=== PATIENT | male | born 1975 | race Caucasian/White ===

== ENCOUNTER 2020-06-20 08:08 | Inpatient (IN) | payer OTHER ==
[~2020-06-20] VITALS: Ht 182.9 cm; Wt 126.9 kg
[~2020-06-20 08:08] MED LIST: CIPR500 PO; FAMO10 PO; IBUPROFEN PO; METPRE4DP PO; OXYACE5T PO; PROM25 PO; RXOXYACE PO; RXPROM25 PO
[2020-06-20 09:09] LABS: Base Excess Venous 0.9 mmol/L; Bicarbonate Venous 23.7 mmol/L (24.0-30.0); PCO2 Venous 47.7 mmHg (38-42); PO2 Venous 42.1 mmHg (38-42); pH Blood Venous 7.35 (7.34-7.37)
[2020-06-20 09:22] LABS: Hemoglobin 17.9 g/dL (13.5-17.5); Mean Corpuscular HGB 27.6 pg (26.0-34.0); Mean Corpuscular HGB Conc 31.7 g/dL (31.5-36.5); Mean Corpuscular Volume 87 fL (80-100); NRBC ABSOLUTE 0.03 K/mm3 (0.00-0.02); NRBC Auto 0.2 /100 WBC (0.0-0.2); Platelet Count 323 K/mm3 (150-400); RDW Standard Deviation 42.6 fL (35.1-46.3); Red Blood Cell Count 6.49 M/mm3 (4.30-5.90); White Blood Cell Count 16.96 K/mm3 (4.00-11.30)
[2020-06-20 09:29] LABS: Alanine Aminotransfer (ALT/SGP 56 U/L (12-78); Albumin, Blood 3.3 g/dL (3.4-5.0); Albumin/Globulin Ratio 0.6 (0.8-1.8); Alk Phos 119 U/L (50-136); Anion Gap 8 mmol/L (6-16); Aspartate Aminotrans (AST/SGOT 75 U/L (12-37); Bilirubin, Total 1.5 mg/dL (0.1-1.0); Blood Urea Nitrogen 23 mg/dL (8-24); Bun/Creatinine Ratio 24.9 (12.0-20.0); CO2, Blood 26 mmol/L (21-32); Calcium, Blood 8.7 mg/dL (8.5-10.1); Chloride, Blood 100 mmol/L (98-108); Creatinine, Blood 0.92 mg/dL (0.60-1.20); Globulin, Blood 5.2 g/dL (2.2-4.0); Glomerular Filtration Rate >60 (60-); Glucose, Blood 125 mg/dL (70-99); Potassium, Blood 4.6 mmol/L (3.5-5.5); Sodium, Blood 134 mmol/L (136-145); Total Protein, Blood 8.5 g/dL (6.4-8.2); Troponin I <0.015 ng/mL (0.000-0.040)
[2020-06-20 09:38] LABS: Hematocrit 56.5 % (37.0-53.0)
[2020-06-20 09:45] LABS: BAND PERCENT MAN 1 % (0-8); BASOPHILS PERCENT MAN 0 % (0-2); EOSINOPHILS PERCENT MAN 0 % (0-6); LYMPHOCYTES ABSOLUTE MAN 2.71 K/mm3 (0.84-5.20); LYMPHOCYTES PERCENT MAN 16 % (21-46); MONOCYTES PERCENT MAN 3 % (4-13); MYELOCYTE ABSOLUTE MAN 0.16 K/mm3 (0.00-0.00); MYELOCYTE PERCENT MAN 1 % (0-0); NEUTROPHILS ABSOLUTE MAN 13.56 K/mm3 (1.96-9.15); SEG NEUTROPHILS PERCENT MAN 79 % (41-73); TOTAL CELLS COUNTED 100
[2020-06-20 10:35] LABS: D-Dimer, Quantitative 4.26 mg/L FEU (0.00-0.52); International Normalized Ratio 1.02; Prothrombin Time Results 10.9 Sec (9.7-11.5)
--- NOTE | 2020-06-20 14:47 | NUR ---
1257: PT ARRIVES TO ICU 5 FROM ED ON AIRVO 55 LPM, 55%, SATS 90% PT ASSISTED TO ICU BED USING SLIDER SHEET. PT TACHYPNEIC AND DYSPNEIC WITH EXERTION, LUNG SOUNDS DIM T/O. PT STATES "SEVERAL FAMILY MEMBERS HAVE COVID" INCLUDING 1 SISTER THAT IS CURRENTLY HOSPITALIZED AT [facility]. 1330: FIO2 INCREASED TO 75% TO MAINTAIN SATS>88 1430" FIO2 INCREASED TO 80%, SATS CURRENTLY 92%. RT AT BEDSIDE ENCOURAGING PT TO SELF PRONE TOLERATED. PT STATES UNDERSTANDING AND STATES HE PREFERS TO BE ON HIS STOMACH. PT'S VSS AT THIS TIME. PT DENIES NEEDS. SEE FULL ADMISSION ASSESSMENT.
[2020-06-20 17:16] LABS: Source, Urine Clean Catch
[2020-06-20 17:19] LABS: Appearance, Urine Clear (Clear); Bilirubin, Urine Neg (Neg); Blood, Urine Neg (Neg); Color, Urine Amber (P-Yellow); Glucose Qualitative, Urine Neg (Neg); Ketones, Urine 1+ (Neg); Leukocyte Esterase, Urine 1+ (Neg); Nitrite, Urine Neg (Neg); Protein, Urine 2+ (Neg); Specific Gravity, Urine 1.015 (1.003-1.022); Urobilinogen, Urine 2+ (Normal); pH, Urine 6.5 (5.0-8.0)
[2020-06-20 17:44] LABS: Mucus Light (0-Heavy)
[2020-06-20 17:45] LABS: Bacteria Few /hpf; Red Blood Cells, Urine 0-2 /hpf (0-2); Squamous Epithelial Cells Not Seen /hpf (Few)
--- NOTE | 2020-06-20 18:09 | NUR ---
SHIFT SUMMARY NO ACUTE CHANGES SINCE ADMISSION TO ICU. PT REMAINS ALERT AND ORIENTED, COOPERATIVE WITH CARE AND ABLE TO INDEPENDENTLY REPOSITION IN BED. PT DYSPNEIC WITH EFFORT, SATS DROP TO LOW 80% WHEN AIRVO REMOVED FOR EVEN SHORT PERIODS OF TIME. PT HAS OCCASIONALLY DRY COUGH, LUNG SOUNDS REMAIN DIM T/O. AIRVO SETTINGS 55 LPM, 80% FIO2-SATS 92-95%. NS INFUSING AT 100 ML/HR X1 LITER. PT HAD 500 ML OF MIKEY URINARY OUTPUT. VSS AT THIS TIME. WILL REPORT TO ONCOMING SHIFT.
[2020-06-21 03:41] LABS: BASOPHILS ABSOLUTE AUTO 0.08 K/mm3 (0.00-0.23); BASOPHILS PERCENT AUTO 1 % (0-2); EOSINOPHILS ABSOLUTE AUTO 0.03 K/mm3 (0.00-0.68); EOSINOPHILS PERCENT AUTO 0 % (0-6); Hematocrit 52.4 % (37.0-53.0); Hemoglobin 17.2 g/dL (13.5-17.5); IMMATURE GRAN ABSOLUTE AUTO 0.59 K/mm3 (0.00-0.10); IMMATURE GRAN PERCENT AUTO 5 % (0-1); LYMPHOCYTES ABSOLUTE AUTO 1.57 K/mm3 (0.84-5.20); LYMPHOCYTES PERCENT AUTO 13 % (21-46); MONOCYTES ABSOLUTE AUTO 0.25 K/mm3 (0.16-1.47); MONOCYTES PERCENT AUTO 2 % (4-13); Mean Corpuscular HGB 27.8 pg (26.0-34.0); Mean Corpuscular HGB Conc 32.8 g/dL (31.5-36.5); Mean Corpuscular Volume 85 fL (80-100); NEUTROPHILS ABSOLUTE AUTO 10.08 K/mm3 (1.96-9.15); NEUTROPHILS PERCENT AUTO 80 % (41-73); RDW Coefficient Variation 13.5 % (11.7-14.2); RDW Standard Deviation 40.6 fL (35.1-46.3); Red Blood Cell Count 6.19 M/mm3 (4.30-5.90)
[2020-06-21 03:42] LABS: Platelet Count 226 K/mm3 (150-400)
[2020-06-21 03:58] LABS: BAND PERCENT MAN 5 % (0-8); BASOPHILS PERCENT MAN 0 % (0-2); EOSINOPHILS PERCENT MAN 0 % (0-6); LYMPHOCYTES ABSOLUTE MAN 1.51 K/mm3 (0.84-5.20); LYMPHOCYTES PERCENT MAN 12 % (21-46); METAMYELOCYTE ABSOLUTE MAN 0.12 K/mm3 (0.00-0.00); METAMYELOCYTE PERCENT MAN 1 % (0-0); MONOCYTES ABSOLUTE MAN 0.37 K/mm3 (0.16-1.47); MONOCYTES PERCENT MAN 3 % (4-13); MYELOCYTE ABSOLUTE MAN 0.12 K/mm3 (0.00-0.00); MYELOCYTE PERCENT MAN 1 % (0-0); NEUTROPHILS ABSOLUTE MAN 10.45 K/mm3 (1.96-9.15); SEG NEUTROPHILS PERCENT MAN 78 % (41-73); TOTAL CELLS COUNTED 100
[2020-06-21 05:03] LABS: Alanine Aminotransfer (ALT/SGP 45 U/L (12-78); Albumin, Blood 2.6 g/dL (3.4-5.0); Albumin/Globulin Ratio 0.6 (0.8-1.8); Alk Phos 98 U/L (50-136); Anion Gap 5 mmol/L (6-16); Aspartate Aminotrans (AST/SGOT 49 U/L (12-37); Bilirubin, Total 1.4 mg/dL (0.1-1.0); Blood Urea Nitrogen 21 mg/dL (8-24); CO2, Blood 27 mmol/L (21-32); Calcium, Blood 8.1 mg/dL (8.5-10.1); Chloride, Blood 102 mmol/L (98-108); Creatinine, Blood 0.88 mg/dL (0.60-1.20); Globulin, Blood 4.4 g/dL (2.2-4.0); Glomerular Filtration Rate >60 (60-); Glucose, Blood 118 mg/dL (70-99); Magnesium, Blood 2.8 mg/dL (1.6-2.4); Potassium, Blood 4.3 mmol/L (3.5-5.5); Sodium, Blood 134 mmol/L (136-145)
--- NOTE | 2020-06-21 06:26 | NUR ---
SHIFT SUMMARY PATIENT PLEASENT AND COOPERATIVE LAST NIGHT. PATIENT APPEARED TO SLEEP WELL THROUGHOUT MOST OF THE NIGHT. PATIENT ABLE TO REPOSITION SELF WELL WITH SOME ASSISTANCE FOR LINE MANAGMENT, PATIENT CALLS APPROPRIATELY FOR HELP WHEN NEEDED. PATIENT SLEF PRONED SEVERAL TIMES LAST NIGHT. PATIENT O2 SATURATION DROPS INTO THE 80'S WITH ACTIVITY, EVEN WITH REPOSITIONING IN BED. HOWEVER, PATIENT ABLE TO RECOVER IN LESS THAN ONE MINUTE EACH TIME WHILE ON AIRVO. PATIENT REMAINED ON AIRVO THROUGHOUT THE NIGHT. WILL CONTINUE WITH CURRENT PLAN OF CARE.
--- NOTE | 2020-06-21 08:01 | NUR ---
ASSUMED CARE RECEIVED REPORT FROM DIANDRA NAQVI. PT IS LYING DOWN IN BED, SEMI-PRONED, ON LEFT SIDE OF BODY. HE IS CURRENTLY AWAKE BUT HAS BEEN WANTING TO SLEEP A LITTLE MORE. HE IS ALERT AND ORIENTED X SELF, SITUATION, SURROUNDINGS, AND DATE. HE C/O HEADACHE, AND BEING SHORT OF BREATH WHEN HE USES THE URINAL BUT NOT WHEN HES AT REST. PT DENIES ANY CHEST PAIN THIS MORNING. HE HAS A NONPRODUCTIVE COUGH. HE IS TACHYPNEIC, RR IN THE 20s. SPO2 IS 92-94%. SINUS TO SINUS TACH. 90s, 100-110 WITH ACTIVITY. BP STABLE TO ELEVATED. BED LOW AND LOCKED. CALL LIGHT WITHIN REACH.
--- NOTE | 2020-06-21 14:21 | NUR ---
Pt able to get out of bed by his self. O2 dropped into the 80s with movement. but came back up while on the BSC. Pt refused my help with cleaning once done on the BSC. Pt agreed to try sitting in the chair before getting back into bed. RN requested to try the chair. Pt stood and I switched out the BSC for a chair and his 02 dropped back into the 80s. Watching him for a few mins his 02 stayed between 82 and 85. Pt c\o chest pain and shortness of breath. I had pt lay back down and reported to the RN.
--- NOTE | 2020-06-21 17:27 | NUR ---
Per admit trigger, I met with Foreign to offer chromosomal disorders counselor, prayer, encouragement. He denied needs and was politely dismissive. I will remain available.
--- NOTE | 2020-06-21 18:21 | NUR ---
SHIFT SUMMARY NO ACUTE CHANGES T/O SHIFT. PT IS ON AIRVO 60L, 75% FIO2 FOR MAJORITY OF THE DAY BUT WITH DINNER/GETTING UP TO THE CHAIR - HE WAS TURNED UP TO 80-85% FOR SOME ADDITIONAL SUPPORT TO MAINTAIN HIS SPO2 > 88%. AT REST HE HAS BEEN SATing 92-94% PRIMARILY. DESATs WITH ANY ACTIVITY (UP TO TOILET, UP TO CHAIR, REPOSITIONING, AND REPOSITIONING TO USE URINAL) - USUALLY JUST LOW 82%, BUT HE RECOVERS WITHIN A FEW MINUTES. HE HAS A NONPRODUCTIVE COUGH, THAT GIVES HIM A SLIGHT DISCOMFORT, BUT HAS IMPROVED SINCE YESTERDAY, DENYING THE PLEURITIC PAIN HE WAS HAVING YESTERDAY (WAS C/O IT BEING WORSE ON INSPIRATION, AND WHEN COUGHING ORIGINALLY). HE IS QUITE DIMINISHED T/O. HE HAS BEEN PRONING ALL DAY, HE HAS BEEN OUT OF BED TO THE TOILET, AND THEN SITTING IN THE CHAIR FOR 15 MINUTES AFTER THAT, BUT DECIDED TO GO BACK TO BED, AND THEN HE HAD A LATE LUNCH AND SAT IN THE CHAIR WHILE HE ATE - FOR AT LEAST AN HOUR, TO HOUR AND A HALF. HE TOLERATED IT WELL ONCE HE RECOVERED FROM THE TRANSFER, AND THE SMALL INCREASE IN THE FIO2. HE IS IN SINUS TO SINUS TACH, DEPENDING ON HIS EXERTION/ACTIVITY LEVEL. 80-90s, 100-120 WITH EXERTION. MAP > 65. RR NORMAL AT REST, AND 25-35 WITH EXERTION. AFEBRILE. ONLY C/O A MILD HEADACHE THAT HAS RESOLVED, AND A DECREASE APPETITE, SLIGHT NAUSEA, AND MAYBE SOME DISCOMFORT R/T TO HIS GERD. I GAVE HIM A DOSE OF ZOFRAN WITH LUNCH, AND DISCUSSED THE POSSIBILITY OF GETTING TUMS IF HE WANTED THEM. AFTER LUNCH HE ACTUALLY HAD [place] INTAKE AND STATED THAT HE ACTUALLY FELT MUCH BETTER. WHEN HE GOT BACK IN BED, IT WAS PUT IN A SLIGHT REVERSE TRENDELENBURG TO HELP WITH THE GERD. HE HAD A BM TODAY, LARGE SOFT AND VARGAS WHICH IS NORMAL FOR HIM FOLLOWING HIS GALL BLADDER REMOVAL YEARS AGO. ASIDE LUNCH HIS INTAKE HASN'T BEEN ADEQUATE THE LAST FEW DAYS PER THE PT. HE DID NOT EAT MUCH BREAKFAST BUT HE HAD AN ENSURE COMPLETE, ALONG WITH A SECOND ONE FOR LUNCH. HE IS CURRENTLY SLEEPING IN THE PRONE POSITION, AND REQUESTED A HOLD ON HIS DINNER FOR THE TIME BEING. THE GOAL IS FOR HIM TO BE IN THE CHAIR WHEN HE EATS, AND HE IS WANTING SOME MORE REST. THE SENIOR QUALITY ASSURANCE ANALYST, GONZÁLEZ, HAS SEEN THE PT TODAY. DR. LALA HAD CAME BY EARLY IN THE DAY. LOVENOX WAS SWITCHED TO 1MG/KG Q12H FROM 40MG DAILY TODAY. TYLENOL GIVEN FOR HEADACHE, WITH GOOD EFFECT. PT IS MOSTLY INDEPENDENT, JUST SOME ASSISTANCE WITH MANAGING THE CHORDS WHILE TRANSFERRING. HE USES URINAL FINE, DARKER MIKEY URINE. BED LOW AND LOCKED. CALL LIGHT WITHIN REACH.
--- NOTE | 2020-06-21 19:50 | NUR ---
ASSUMPTION OF CARE RECEIVED REPORT FROM MARIAELENA JIM, ASSUMED CARE OF PATIENT. PATIENT ON STOMACH IN PRONING POSITION, EYES CLOSED, EASILY AWAKENS. DENIED DISCOMFORTS, NO PHYSICAL SIGNS OF DISTRESS. AIRVO WITH SETTINGS 60L 85% FIO2 WITH SATS ABOVE 90%. VITALS STABLE. WILL REVIEW ORDERS AND TREAT PRESCRIBED.
--- NOTE | 2020-06-22 | NUR ---
REASSESSMENT NO ACUTE CHANGES FROM INITIAL ASSESSMENT. PATIENT SELF PRONING WITH NO S/S OF DISTRESS. VITALS STABLE. DECREASED FIO2 TO 90% FROM 95%. SATS REMAINED ABOVE 95%. WILL CONTINUE TO MONITOR. CALL LIGHT WITHIN REACH.
--- NOTE | 2020-06-22 03:12 | NUR ---
BIPAP PATIENT'S SATS DECREASING TO LOW 80'S AND SUSTAINING. 60L, 95% FIO2 VIA AIRVO IN PLACE. UNABLE TO RECOVER SATS ABOVE 88% NOTIFIED FABIENNE HERRERA AND DR. GARAY, RECEIVED ORDERS FOR BIPAP AND PLACED WITH SETTINGS CPAP 10, FIO2 75%. PATIENT TOLERATING WELL AT THIS TIME. SATS NOW ABOVE 95%. WILL CONTINUE TO MONITOR.
--- NOTE | 2020-06-22 04:00 | NUR ---
REASSESSMENT NO ACUTE CHANGES FROM PREVIOUS ASSESSMENT. TOLERATING BIPAP WITH CPAP SETTINGS OF 10. SATS REMAIN ABOVE 95%. VITALS STABLE. CALL LIGHT IN REACH.
[2020-06-22 04:30] LABS: BASOPHILS PERCENT AUTO 1 % (0-2); EOSINOPHILS ABSOLUTE AUTO 0.07 K/mm3 (0.00-0.68); EOSINOPHILS PERCENT AUTO 1 % (0-6); Hemoglobin 15.5 g/dL (13.5-17.5); IMMATURE GRAN ABSOLUTE AUTO 0.66 K/mm3 (0.00-0.10); IMMATURE GRAN PERCENT AUTO 6 % (0-1); LYMPHOCYTES ABSOLUTE AUTO 1.58 K/mm3 (0.84-5.20); LYMPHOCYTES PERCENT AUTO 14 % (21-46); MONOCYTES ABSOLUTE AUTO 0.17 K/mm3 (0.16-1.47); MONOCYTES PERCENT AUTO 2 % (4-13); Mean Corpuscular HGB 27.3 pg (26.0-34.0); Mean Corpuscular HGB Conc 32.3 g/dL (31.5-36.5); Mean Corpuscular Volume 85 fL (80-100); Mean Platelet Volume 9.9 fL (9.1-12.4); NEUTROPHILS ABSOLUTE AUTO 9.08 K/mm3 (1.96-9.15); NEUTROPHILS PERCENT AUTO 78 % (41-73); Platelet Count 274 K/mm3 (150-400); RDW Coefficient Variation 13.2 % (11.7-14.2); RDW Standard Deviation 40.6 fL (35.1-46.3); Red Blood Cell Count 5.67 M/mm3 (4.30-5.90); White Blood Cell Count 11.66 K/mm3 (4.00-11.30)
[2020-06-22 04:50] LABS: Anion Gap 6 mmol/L (6-16); Blood Urea Nitrogen 26 mg/dL (8-24); Bun/Creatinine Ratio 33.5 (12.0-20.0); CO2, Blood 27 mmol/L (21-32); Calcium, Blood 8.4 mg/dL (8.5-10.1); Chloride, Blood 103 mmol/L (98-108); Creatinine, Blood 0.78 mg/dL (0.60-1.20); Glomerular Filtration Rate >60 (60-); Glucose, Blood 124 mg/dL (70-99); Potassium, Blood 4.7 mmol/L (3.5-5.5); Sodium, Blood 136 mmol/L (136-145)
[2020-06-22 04:51] LABS: BAND PERCENT MAN 1 % (0-8); BASOPHILS PERCENT MAN 0 % (0-2); EOSINOPHILS PERCENT MAN 0 % (0-6); LYMPHOCYTES ABSOLUTE MAN 1.04 K/mm3 (0.84-5.20); LYMPHOCYTES PERCENT MAN 9 % (21-46); METAMYELOCYTE ABSOLUTE MAN 0.11 K/mm3 (0.00-0.00); METAMYELOCYTE PERCENT MAN 1 % (0-0); MONOCYTES ABSOLUTE MAN 0.11 K/mm3 (0.16-1.47); MONOCYTES PERCENT MAN 1 % (4-13); NEUTROPHILS ABSOLUTE MAN 10.37 K/mm3 (1.96-9.15); SEG NEUTROPHILS PERCENT MAN 88 % (41-73); TOTAL CELLS COUNTED 100
--- NOTE | 2020-06-22 06:56 | NUR ---
SHIFT SUMMARY PATIENT PROGRESSED TO BIPAP FROM AIRVO, SLOW TO RECOVER O2 SATS WITH ANY ACTIVITY. SETTINGS ARE CPAP 12 FIO2 75%. PATIENT PRONED MAJORITY OF NIGHT AND TOLERATED WELL. PRODUCTIVE COUGH THROUGH NIGHT, USING FLUTTER VALVE. LUNGS DIMINISHED. VITALS STABLE. CONTINENT OF URINE. WILL CONTINUE TO MONITOR AND REPORT TO ONCOMING RN.
--- NOTE | 2020-06-22 10:20 | NUR ---
PT RESTING IN BED ON CPAP. FIO2 TITRATED UP TO 80% FROM 75%. PT WAS PRONED THIS AM AND SPO2 IS BETTER WITH PRONE POSITION, BUT PT WANTED TO TAKE A BREAK. TOLERATES CPAP WELL. HAS HARSH HACKING COUGH WITH SCANT SPUTUM THAT PT SWALLOWS MOST OF THE TIME. WHILE GIVING MEDS AND AT BREAKFAST, PUT PT ON AIRVO 60L FIO2 95%. PT WILL DESAT TO 85% BUT WILL RECOVER WITH REST AND THEN BACK TO CPAP. WAS ABLE TO DRINK SOME ENSURE. CALL LIGHT AND URINAL IN REACH.
--- NOTE | 2020-06-22 18:13 | NUR ---
SUMMARY PT RESTING IN BED ON CPAP. HAS WORN CPAP ALL DAY. ABLE TO PRONE SELF AND OXYGENATES BETTER WHEN PRONED. FIO2 TITRATED DOWN TO 60%. GETS SOB WITH ANY EXERTION AND SPO2 DROPS TO 84%. JUST USING URINAL IN BED MAKES PT SOB AND SPO2 DROPS. NO OTHER CHANGES THIS SHIFT.
--- NOTE | 2020-06-22 19:13 | NUR ---
ASSUMPTION OF CARE RECEIVED REPORT FROM KRYSTIAN JIM. ASSUMED CARE OF PATIENT. PATIENT IN PRONE POSITION, BIPAP WITH CPAP SETTINGS 12, FIO2 60%. VITALS STABLE. NO S/S OF DISTRESS. WILL REVIEW ORDERS AND TREAT PRESCRIBED.
--- NOTE | 2020-06-22 21:04 | NUR ---
AIRVO PATIENT REQUESTING BREAK OFF BIPAP, PRONED PATIENT AGAIN AND PLACED AIRVO 60L 90% FIO2. SATS ABOVE 93%. PATIENT TOLERATING WELL. CALL LIGHT WITHIN REACH.
--- NOTE | 2020-06-22 22:08 | NUR ---
BIPAP PATIENT WITH SATS SUSTAINING AT 85% ON AIRVO SETTINGS 60L, 90% FIO2. PATIENT ACTIVELY COUGHING AND RESPIRATIONS IN THE 30'S. PLACED PATIENT BACK ON BIPAP, PATIENT IN AGREEMENT. CPAP SETTINGS OF 12, 70% FIO2. SATS RECOVERED UP TO 94%. PATIENT TOLERATING WELL.
--- NOTE | 2020-06-23 | NUR ---
REASSESSMENT NO ACUTE CHANGES. PATIENT REMAINS PRONED, CPAP 12, FIO2 70% IN PLACE. SATS ABOVE 93%. PATIENT TOLERATING WELL. CALL LIGHT IN REACH.
--- NOTE | 2020-06-23 04:00 | NUR ---
REASSESSMENT NO ACUTE CHANGES FROM PREVIOUS ASSESSMENT. PATIENT PRONING WITH BIPAP IN PLACE. SETTINGS REMAIN CPAP 12, FIO2 70%. SATS ABOVE 95%. VITALS STABLE. CALL LIGHT IN REACH.
--- NOTE | 2020-06-23 06:06 | NUR ---
SHIFT SUMMARY PATIENT REMAINED ON BIPAP AND PRONED THROUGH NIGHT. TOLERATED WELL. DENIED DISCOMFORTS OR NEEDS. IV TKO INFUSING. VITALS STABLE. WILL CONTINUE TO MONITOR AND TREAT PRESCRIBED.
--- NOTE | 2020-06-23 09:44 | NUR ---
PT RESTING IN BED. WAS ABLE TO BE ON AIRVO FOR AWHILE THIS AM TO EAT BREAKFAST. AFTER ABOUT 1.5HR PT STARTED TO DESAT TO 85%. PLACED BACK ON CPAP WITH FIO2 70% AND PRONED HIMSELF AGAIN. NOW SPO2 IN THE 90'S AND SOB RESOLVED. GAVE PT BEDBATH WHILE ON CPAP AND DOES WELL TURNING SELF IN BED. PT HAS VERY LITTLE STAMINA THOUGH. CALL LIGHT IN REACH.
--- NOTE | 2020-06-23 18:13 | NUR ---
SUMMARY PT WAS ABLE TO TAKE A COUPLE BREAKS FROM CPAP TODAY WITH AIRVO. ABLE TO EAT BREAKFAST AND DINNER. ALSO GOT UP TO CHAIR TODAY. PT IS PRONING SELF AND USING FLUTTER VALVE INDEP. PT HAD A BETTER DAY THAN YESTERDAY. NO OTHER CHANGES. USING CALL LIGHT APPROPRIATELY.
--- NOTE | 2020-06-24 03:10 | NUR ---
ASSUMED PT CARE AT 1915 FROM DIANDRA BOLAND PT RESTING IN BED. ALERT AND ORIENTED AND ABLE TO MAKE NEEDS KNOWN. ABLE TO REPOSITION SELF. BECOMES VERY SOB VERY EASILY WITH ANY SORT OF EXERTION AND/OR ACTIVITY. PT ON AIRVO AT 60LPM WITH FIO2 AT 93%; BIOX >88%. LUNG SOUNDS ARE CLEAR T/O AND DIMINISHED IN BILATERAL BASES. NSR WITH HR 80'S; BP'S STABLE, SEE FLOWSHEET. PT REQUEST TYLENOL FOR A 7/10 HEADACHE; LIGHTS DIMMED FOR COMFORT WELL. PT ALSO GIVEN MELATONIN PRN FOR SLEEP PER PT REQUEST. PT IS VERY PLEASANT AND COOPERATIVE WITH CARES. CALL LIGHT WITHIN REACH; PT ABLE TO MAKE NEEDS KNOWN.
--- NOTE | 2020-06-24 05:43 | NUR ---
END OF SHIFT SUMMARY NO SIGNIFICANT CHANGES SINCE LAST ENTRY. PT TOLERATED AIRVO FOR MOST OF SHIFT AT 60LPM AT 93% FIO2. HE WORE THE CPAP AT 12 CM OF H20 AND 70% FIO2 FOR A SHORT WHILE; HOWEVER, PT PREFERS AIRVO. REPOSITIONS SELF, WELL SELF PRONES. PT VERY COOPERATIVE AND PLEASANT WITH CARES. UTILIZES CALL LIGHT APPROPRIATELY. BECOMES VERY SOB WITH MINIMAL ACTIVITY. WILL CONTINUE TO MONITOR UNTIL REPORT IS HANDED OFF TO ONCOMING RN.
--- NOTE | 2020-06-24 09:54 | NUR ---
ASSUMED CARE CARE AND REPORT ASSUMED FROM KRYSTIAN JIM. PT SLEEPING, LYING ON SIDE. WEARING CPAP 12, FIO2 70%. SPO2 88-93%. AWAITING ABG RESULTS. IV SALINE LOCKED. PT ENCOURAGED TO PRONE MUCH POSSIBLE. WILL MONITOR CLOSELY.
[2020-06-24 09:57] LABS: PCO2 Arterial 35.2 mmHg (35-45); PO2 Arterial 53.6 mmHg (80-100); pH Blood Arterial 7.44 (7.35-7.45)
--- NOTE | 2020-06-24 10:02 | NUR ---
PT RESTING IN BED. PT IS A/O X4. PT WAS ON AIRVO THIS AM AND ATE SOME BREAKFAST. GETTING SOB AND SPO2 DROPPING DOWN TO LOW 80'S THIS AM WITH ANY EXERTION. MUCH QUICKER THAN HE DID YESTERDAY. PT DID NOT WEAR HIS CPAP MUCH LAST NIGHT HE DID THE NIGHT BEFORE. EDUCATED PT ABOUT CPAP AND BENEFITS. ABLE TO CONVINCE PT TO TRY CPAP AGAIN. WHEN ON CPAP 12 WITH FIO2 70% SPO2 IS GREATER THAN 90%. PLACED GEL PAD TO BRIDGE OF NOSE. PT IS USING FLUTTER VALVE WELL. ABLE TO REPOSITION SELF AND HAS BEEN PRONING SELF FREQUENTLY. EDUCATED ABOUT BENEFITS OF PRONING WELL. SPOKE WITH DR. WEBSTER THIS AM ABOUT POSSIBLE PULMONOLOGY CONSULT. ABG ORDERED. REPORT GIVEN TO ROSANA JIM WHO WILL ASSUME CARE.
--- NOTE | 2020-06-24 10:38 | NUR ---
PULMOMARY CONSULT 1035 - PULMONARY CONSULTED FOR RESPIRATORY MANAGEMENT AND INCREASING 02 DEMANDS. PT REMAINS ON CPAP, FIO2 INCREASED TO 80%. CXR AND LABS ORDERED.
[2020-06-24 11:05] LABS: BASOPHILS ABSOLUTE AUTO 0.06 K/mm3 (0.00-0.23); BASOPHILS PERCENT AUTO 1 % (0-2); EOSINOPHILS ABSOLUTE AUTO 0.24 K/mm3 (0.00-0.68); EOSINOPHILS PERCENT AUTO 2 % (0-6); Hematocrit 44.5 % (37.0-53.0); Hemoglobin 14.7 g/dL (13.5-17.5); IMMATURE GRAN ABSOLUTE AUTO 0.52 K/mm3 (0.00-0.10); IMMATURE GRAN PERCENT AUTO 5 % (0-1); LYMPHOCYTES ABSOLUTE AUTO 0.82 K/mm3 (0.84-5.20); LYMPHOCYTES PERCENT AUTO 8 % (21-46); MONOCYTES ABSOLUTE AUTO 0.16 K/mm3 (0.16-1.47); MONOCYTES PERCENT AUTO 2 % (4-13); Mean Corpuscular HGB 27.6 pg (26.0-34.0); Mean Corpuscular Volume 84 fL (80-100); Mean Platelet Volume 10.3 fL (9.1-12.4); NEUTROPHILS ABSOLUTE AUTO 8.95 K/mm3 (1.96-9.15); NEUTROPHILS PERCENT AUTO 83 % (41-73); Platelet Count 289 K/mm3 (150-400); RDW Coefficient Variation 13.1 % (11.7-14.2); RDW Standard Deviation 39.7 fL (35.1-46.3); Red Blood Cell Count 5.32 M/mm3 (4.30-5.90); White Blood Cell Count 10.75 K/mm3 (4.00-11.30)
[2020-06-24 11:25] LABS: Alanine Aminotransfer (ALT/SGP 22 U/L (12-78); Albumin, Blood 2.4 g/dL (3.4-5.0); Albumin/Globulin Ratio 0.5 (0.8-1.8); Alk Phos 91 U/L (50-136); Anion Gap 7 mmol/L (6-16); Aspartate Aminotrans (AST/SGOT 58 U/L (12-37); Bilirubin, Total 0.7 mg/dL (0.1-1.0); Blood Urea Nitrogen 21 mg/dL (8-24); Bun/Creatinine Ratio 27.9 (12.0-20.0); CO2, Blood 26 mmol/L (21-32); Calcium, Blood 8.4 mg/dL (8.5-10.1); Chloride, Blood 100 mmol/L (98-108); Creatinine, Blood 0.75 mg/dL (0.60-1.20); Globulin, Blood 4.7 g/dL (2.2-4.0); Glomerular Filtration Rate >60 (60-); Glucose, Blood 137 mg/dL (70-99); Magnesium, Blood 2.5 mg/dL (1.6-2.4); Phosphorus, Blood 3.5 mg/dL (2.5-4.9); Potassium, Blood 4.9 mmol/L (3.5-5.5); Sodium, Blood 133 mmol/L (136-145); Total Protein, Blood 7.1 g/dL (6.4-8.2)
--- NOTE | 2020-06-24 13:04 | NUR ---
REASSESSMENT PT TURNED HIMSELF ONTO PRONE POSITION. WAS TOELRATING CPAP, SANDRA MASK WELL BUT IN PRONE POISITION, PT REQUESTED TO TRY WEARING AIRVO. AIRVO CURRENTLY 60L, 92L, WITH SPO2 88-92%. LUNG SOUNDS REMAIN CLEAR BUT DIMINISHED THROUGHOUT. LABS RESULTED. WILL MONITOR CLOSELY. REMDESIVIR INFUSING. AFEBRILE.
--- NOTE | 2020-06-24 18:16 | NUR ---
SHIFT SUMMARY PT REMAINED IN BED ENTIRE SHIFT BUT DID MOVE HIMSELF OFTEN. WAS PRONED FOR APPROX 4-5 HOURS TODAY. PT TURNS HIMSELF. PULMONOLOGY CONSULTED TODAY; CXR AND LABS OBTAINED THIS AM. WORE CPAP 12, FIO2 80%. DID TOLERATE AIRVO 60L, FIO2 92%. NEW PERIPHERAL IV INSERTED. PT RECEIVED COMPLETE BEDBATH AND LINEN CHANGE. SITTING UPRIGHT IN BED WATCHING TV; TOLERATED EATING DINNER. WILL GIVE BEDSIDE, HANDOFF REPROT TO ZAHEER RN.
--- NOTE | 2020-06-24 22:57 | NUR ---
ASSUMED PT CARE AT 1915 PT SITTING UP IN BED. AIRVO 60 LPM; 92%. PT ALERT AND ORIENTED; ABLE TO MAKE NEEDS KNOWN. ABLE TO RESPOSITION SELF IN BED; CALL LIGHT WITHIN REACH.
[2020-06-25 03:34] LABS: BASOPHILS ABSOLUTE AUTO 0.06 K/mm3 (0.00-0.23); BASOPHILS PERCENT AUTO 1 % (0-2); EOSINOPHILS ABSOLUTE AUTO 0.14 K/mm3 (0.00-0.68); EOSINOPHILS PERCENT AUTO 1 % (0-6); Hematocrit 47.4 % (37.0-53.0); Hemoglobin 15.2 g/dL (13.5-17.5); IMMATURE GRAN ABSOLUTE AUTO 0.49 K/mm3 (0.00-0.10); IMMATURE GRAN PERCENT AUTO 5 % (0-1); LYMPHOCYTES PERCENT AUTO 10 % (21-46); MONOCYTES PERCENT AUTO 1 % (4-13); Mean Corpuscular HGB Conc 32.1 g/dL (31.5-36.5); Mean Corpuscular Volume 84 fL (80-100); Mean Platelet Volume 10.1 fL (9.1-12.4); NEUTROPHILS PERCENT AUTO 83 % (41-73); Platelet Count 273 K/mm3 (150-400); Red Blood Cell Count 5.63 M/mm3 (4.30-5.90); White Blood Cell Count 10.79 K/mm3 (4.00-11.30)
[2020-06-25 03:48] LABS: Anion Gap 8 mmol/L (6-16); Blood Urea Nitrogen 21 mg/dL (8-24); Bun/Creatinine Ratio 29.8 (12.0-20.0); CO2, Blood 25 mmol/L (21-32); Calcium, Blood 8.6 mg/dL (8.5-10.1); Chloride, Blood 99 mmol/L (98-108); Glomerular Filtration Rate >60 (60-); Glucose, Blood 132 mg/dL (70-99); Potassium, Blood 4.7 mmol/L (3.5-5.5); Sodium, Blood 132 mmol/L (136-145)
[2020-06-25 05:35] LABS: PCO2 Arterial 33.5 mmHg (35-45); PO2 Arterial 81.9 mmHg (80-100); pH Blood Arterial 7.48 (7.35-7.45)
--- NOTE | 2020-06-25 06:25 | NUR ---
END OF SHIFT SUMMARY PT REMAINED ON CPAP FOR MOST OF NIGHT; 12CM H20 WITH 100% FIO2. PT REMAINED IN THE PRONE POSITION T/O MOST OF SHIFT. PT REQUESTED CPAP BREAK THIS MORNING; HOWEVER, WAS NOT ABLE TO SUSTAIN ON AIRVO WITH PT IN THE PRONE POSITION; THEREFORE, TRANSITIONED BACK TO CPAP; BIOX >90%. PT IS SALINE LOCKED AT THIS TIME. TOLERATING PO FLUIDS. CALL LIGHT WITHIN REACH; PT ABLE TO MAKE NEEDS KNOWN.
--- NOTE | 2020-06-25 07:47 | NUR ---
ASSUMED CARE RECEIVED REPORT FROM DIANDRA JOSEPH. PT IS ASLEEP IN THE PRONE POSITION ON CPAP, AT 12 cm H2O, FIO2 100% -- SPO2 94%. TACHYPNEIC, RR 25-35. SINUS TO SINUS TACH 90-110, MAP > 65. AFEBRILE. HAD PREVIOUSLY REFUSED SCDs. FAIRLY INDEPENDENT IN ROOM. CALL LIGHT WITHIN REACH. BED LOW AND LOCKED.
--- NOTE | 2020-06-25 12:04 | NUR ---
UPDATE AT [id number] PT REPOSITIONED SUPINE AND PUT UP INTO FOWLERS. SPO2 WAS LOW-MID 80s. PT SWITCHED TO AIRVO 60L, 93% FIO2, SO HE EAT A QUICK SNACK, DRINK SOME FLUIDS, TAKE HIS MORNING MEDICATIONS, AND CLEAN HIS MOUTH/BRUSH HIS TEETH. HIS SATs WERE BETWEEN 75-84%, RR 25-35, PT APPEARED DYSPNEIC BUT NOT ANY DIFFERENT THAN WHEN HE WAS ON THE CPAP. HE IS VERY DIMINISHED T/O. AT 1030 HE WAS REPOSITIONED PRONED, ON RIGHT SIDE. HIS SPO2 INCREASED TO ABOUT 82-84%. HE APPEARED MORE COMFORTABLE DURING THIS TIME, AND STATING HE FELT SLIGHTLY BETTER. BUT STILL VERY TIRED. HEADACHE HAS IMPROVED. AFTER FAILING TO RECOVER BACK UP TO 88%+ ON HIS SPO2 WE THEN PLACED HIM BACK ON THE CPAP AT 12 CM H20, 100% FIO2 AT 1150. WITHIN A MINUTE OR TWO HIS SPO2 INCREASED TO 92-94%. HE IS CONTINUES TO SELF PRONING/LAY ON HIS RIGHT SIDE. LAST FEW BLOOD PRESSURE READINGS HAVE BEEN "SOFT", MAP > 65 - HOWEVER, AND IT MAY BE DUE TO THIS BP CUFF ON HIS LEFT WRIST IS ABOVE THE LEVEL OF HIS HEART. PT IS NOT SYMPTOMATIC FOR HYPOTENSION.
--- NOTE | 2020-06-25 16:30 | NUR ---
UPDATE NO ACUTE CHANGES, PT HAS BEEN IN AND OUT OF SLEEP, ROTATING FROM PRONE POSITIONING TO SIDE INDEPENDENTLY. HE IS VERY TIRED TODAY, AND APPEARING TO BE WITHDRAWN SLIGHTLY. HE CONTINUES TO BE ON CPAP AT 12 CM H20, FIO2 100%, SPO2 91-95% AT REST/PRONE/SIDE. VITALS STABLE. PT HAS NO CURRENT NEEDS. DENIES ANY PAIN.
--- NOTE | 2020-06-25 17:30 | NUR ---
SHIFT SUMMARY NO MAJOR CHANGES SINCE PREVIOUS NOTE. CONTINUES TO BE ON CPAP 12 CM H20, FIO2 100% -- SPO2 92-96%. PT HAS BEEN ON HIS SIDES THE MAJORITY OF THE DAY, SLIGHT PRONE POSITIONING WHEN ON SIDE. BED IS ALSO IN REVERSE TRENDELENBURG. AFTER HIS AIRVO TRIAL AND SPENDING TIME WITH HIS SPO2 IN THE LOW 80s EARLIER TODAY, ALONG WITH HIS FATIGUE -- IT WAS DECIDED TO JUST KEEP HIM ON CPAP AND NOT ATTEMPT TO DO ANOTHER AIRVO TRIAL DUE TO HIS HOW WELL HE IS DOING CURRENTLY. RR IN THE 20s, OCCASSIONAL COUGH, NO CHEST PAIN, GREAT TIDAL VOLUMES, ETC... PT DOES APPEAR WITHDRAWN AND POSSIBLY A LITTLE DEPRESSED. HE IS VERY COOPERATIVE WITH CARE. MINIMAL URINE OUTPUT TODAY, BUT ALSO MINIMAL INTAKE HE HAS BEEN DEPENDENT ON THE CPAP - SOME FLUIDS AND YOGURT FOR BREAKFAST BUT THAT HAS BEEN ALL OF IT. VITALS STABLE, MAP > 65, SINUS RHYTHM; RR 20s WHEN RESTING; AFEBRILE. PT CONTINUES TO REFUSE SCDs TODAY, BUT IS ON LOVENOX 1MG/KG BID. PT HAS BEEN DENYING PAIN, AND STATES HIS HEADACHE STOPPED AFTER TAKING TYLENOL. WHEN HE WAS ON THE AIRVO TRIAL HE DID MENTION THAT HE FELT LIKE AIR WAS GOING INTO HIS STOMACH A LITTLE, AND WAS FEELING "GASSY", BELTCHING AT TIMES - I HAVE NOT SEE HIM BELTCH OF YET. BED IS LOW AND LOCKED. CALL LIGHT WITHIN REACH. PT IS INDEPENDENT IN THE BED, REPOSITIONING SELF.
--- NOTE | 2020-06-25 19:14 | NUR ---
ASSUMED PT CARE FROM DIANDRA FERRELL PT LYING ON RIGHT SIDE WITH CPAP IN PLACE; 12CM H20, 100% FIO2. BIOX 96%. PT HADN'T EATEN DINNER YET AND WAS REQUESTING BREAK FROM CPAP. PLACED ON AIRVO; 60LPM, FIO2 95%; BIOX 85%. GOAL IS TO KEEP BIOX 88% OR GREATER. EDUCATED PT REGARDING LOW OXYGEN SATURATION LEVELS AND MENTATION CHANGES; PT VERBALIZED UNDERSTANDING. OFFERED ENSURE DRINK A SUBSTITUTE AND PT DENIED KINDLY AND STATED HE WAS HUNGRY. PT CURRENTLY EATING DINNER SITTING IN HIGH FOWLERS WITH AIRVO IN PLACE. PT IS VERY SOB WITH MINIMAL ACTIVITY. EDUCATED IN REGARDS TO INFORMING ME IF HE FEELS ANY CHANGE IN MENTATION D/T HIGH RISK OF ASPIRATION; AGAIN, PT VERBALIZED UNDERSTANDING. WILL REMAIN AT BEDSIDE UNTIL PT IS DONE EATING DINNER AND CAN BE PLACED BACK ON THE CPAP.
[2020-06-26 03:25] LABS: BASOPHILS ABSOLUTE AUTO 0.05 K/mm3 (0.00-0.23); BASOPHILS PERCENT AUTO 0 % (0-2); EOSINOPHILS ABSOLUTE AUTO 0.02 K/mm3 (0.00-0.68); EOSINOPHILS PERCENT AUTO 0 % (0-6); Hematocrit 44.8 % (37.0-53.0); Hemoglobin 14.3 g/dL (13.5-17.5); IMMATURE GRAN ABSOLUTE AUTO 0.56 K/mm3 (0.00-0.10); IMMATURE GRAN PERCENT AUTO 5 % (0-1); LYMPHOCYTES ABSOLUTE AUTO 1.17 K/mm3 (0.84-5.20); LYMPHOCYTES PERCENT AUTO 10 % (21-46); MONOCYTES ABSOLUTE AUTO 0.15 K/mm3 (0.16-1.47); MONOCYTES PERCENT AUTO 1 % (4-13); Mean Corpuscular HGB 26.8 pg (26.0-34.0); Mean Corpuscular HGB Conc 31.9 g/dL (31.5-36.5); Mean Corpuscular Volume 84 fL (80-100); Mean Platelet Volume 10.7 fL (9.1-12.4); NEUTROPHILS PERCENT AUTO 84 % (41-73); Platelet Count 271 K/mm3 (150-400); RDW Standard Deviation 39.8 fL (35.1-46.3); Red Blood Cell Count 5.33 M/mm3 (4.30-5.90); White Blood Cell Count 12.05 K/mm3 (4.00-11.30)
[2020-06-26 03:40] LABS: Albumin, Blood 2.2 g/dL (3.4-5.0); Anion Gap 6 mmol/L (6-16); Blood Urea Nitrogen 24 mg/dL (8-24); Bun/Creatinine Ratio 31.8 (12.0-20.0); CO2, Blood 29 mmol/L (21-32); Calcium, Blood 8.6 mg/dL (8.5-10.1); Chloride, Blood 99 mmol/L (98-108); Creatinine, Blood 0.76 mg/dL (0.60-1.20); Glomerular Filtration Rate >60 (60-); Glucose, Blood 153 mg/dL (70-99); Phosphorus, Blood 4.7 mg/dL (2.5-4.9); Potassium, Blood 4.7 mmol/L (3.5-5.5); Sodium, Blood 134 mmol/L (136-145)
[2020-06-26 05:33] LABS: PCO2 Arterial 42.3 mmHg (35-45); PO2 Arterial 65.5 mmHg (80-100); pH Blood Arterial 7.41 (7.35-7.45)
--- NOTE | 2020-06-26 05:45 | NUR ---
END OF SHIFT SUMMARY PT REMAINED ON CPAP FOR MOST OF NIGHT IN THE PRONE POSITION. SLIGHT SHIFTING OF HIPS T/O NIGHT TO ROTATE LEFT AND RIGHT SIDES, BUT REMAINED PRONED. CPAP 12CM H20; FIO2 100%; BIOX 95%. ATTEMPTED TO PLACE BACK ON AIRVO THIS MORNING AT 60LPM; FIO2 95%; HOWEVER, PT WAS NOT ABLE TO MAINTAIN BIOX >88%. RT AT BEDSIDE TO OBTAIN ABG AND DECIDED TO PLACE PT BACK ON CPAP IN ORDER TO OBTAIN LAB. WILL DISCUSS WITH DAY RN REGARDING ATTEMPTING ANOTHER BREAK FROM CPAP. WILL CONTINUE TO MONITOR UNTIL REPORT IS HANDED OFF TO ONCOMING RN.
--- NOTE | 2020-06-26 08:30 | NUR ---
Receieved report from Dickosn JIM. Patient is currently resting and when entering room asked if he wanted breakfast he stated " Not right now". He is self proning currently and slightly on left site with CPAP in place setting of 12 and sats >95%. He denies any current needs or pain intervention. He iss independent with positioning in bed and uses call light appropriately. VSS, See EMR.
--- NOTE | 2020-06-26 10:50 | NUR ---
Patient placed on AirVo 60L 93% and sats 98% for breakfast and am meds at 0915. Just placed back on CPAP of 12 and sats back in low 90%'s as he was staying low 80%after 100% breakfast. VSS See EMR. He will stay supine until noon and prone himself.He denies any current needs or pain interventions.
--- NOTE | 2020-06-26 12:00 | NUR ---
Patient remains sitting up in bed with CPAP in place same settings. He ate 100% of lunch and is watching TV with sats >90%. Using urinal appropriately had 300 mls grzegorz colored urine. VSS, See EMR. Patient denies any current needs or pain intervention. Dr Estrada was in seeing patient, no new orders.
--- NOTE | 2020-06-26 13:38 | NUR ---
Patient wants to remain up in bed with CPAP in place and will prone self in a little bit. VSS, See EMR. No other significant changes.
--- NOTE | 2020-06-26 15:30 | NUR ---
Patient proned self and remains on CPAP /12 and sats >90%. He continues to rest without difficulty. He states he has heartburn and wanted a tums. He uses urinal appropriate. He denies any needs or pain.
--- NOTE | 2020-06-26 18:30 | NUR ---
Patient placed back on AirVo 60L 93% and sats high 80-low 90'S. He is up in chair self ambulated and assist with lines and tubes and is sitting up to eat dinner. Linen changed and I & O done. Patient alert and oriented and able to communicate his needs.
--- NOTE | 2020-06-26 20:00 | NUR ---
PATIENT SITTING IN RECLINER CHAIR WITH FEET UP. PATIENT ON AIRVO 60L FIO2 95% MAINTAINING BIOX 93%. LUNG SOUNDS WITH FINE CRACKLES BASES, PATIENT VERBALIZED THAT HE IS ABLE TO PRODUCE MORE SPUTUM TODAY, UNSURE OF COLOR DUE TO BEING SWALLOWED WHEN ON CPAP. PATIENT ABLE TO POSITION SELF FOR COMFORT, PATIENT AGREED TO HAVE CPAP IN PLACE WHEN UP WALKING FROM CHAIR TO BED.
--- NOTE | 2020-06-26 22:54 | NUR ---
PATIENT ABLE TO AMBULATE TO BED WITH CPAP IN PLACE. BACK TO AIRVO WHEN BACK IN BED. DESAT WITH ACTIVITY TO 83% WITH SLOW BUT STEADY RECOVERY BACK TO 93%
--- NOTE | 2020-06-27 02:48 | NUR ---
PATIENT AWAKE, C/O NOT BEING ABLE TO SLEEP. MELATONIN GIVEN
[2020-06-27 03:46] LABS: PCO2 Arterial 40.4 mmHg (35-45); PO2 Arterial 64.1 mmHg (80-100); pH Blood Arterial 7.44 (7.35-7.45)
[2020-06-27 03:58] LABS: BASOPHILS PERCENT AUTO 1 % (0-2); EOSINOPHILS ABSOLUTE AUTO 0.04 K/mm3 (0.00-0.68); EOSINOPHILS PERCENT AUTO 0 % (0-6); Hematocrit 42.7 % (37.0-53.0); Hemoglobin 13.9 g/dL (13.5-17.5); IMMATURE GRAN ABSOLUTE AUTO 0.76 K/mm3 (0.00-0.10); IMMATURE GRAN PERCENT AUTO 5 % (0-1); LYMPHOCYTES ABSOLUTE AUTO 1.58 K/mm3 (0.84-5.20); LYMPHOCYTES PERCENT AUTO 9 % (21-46); MONOCYTES ABSOLUTE AUTO 0.24 K/mm3 (0.16-1.47); MONOCYTES PERCENT AUTO 1 % (4-13); Mean Corpuscular HGB 27.1 pg (26.0-34.0); Mean Corpuscular HGB Conc 32.6 g/dL (31.5-36.5); Mean Corpuscular Volume 83 fL (80-100); Mean Platelet Volume 10.7 fL (9.1-12.4); NEUTROPHILS ABSOLUTE AUTO 14.31 K/mm3 (1.96-9.15); NEUTROPHILS PERCENT AUTO 84 % (41-73); Platelet Count 310 K/mm3 (150-400); RDW Standard Deviation 39.6 fL (35.1-46.3); Red Blood Cell Count 5.12 M/mm3 (4.30-5.90); White Blood Cell Count 17.03 K/mm3 (4.00-11.30)
[2020-06-27 04:15] LABS: Albumin, Blood 2.2 g/dL (3.4-5.0); Anion Gap 8 mmol/L (6-16); Blood Urea Nitrogen 22 mg/dL (8-24); Bun/Creatinine Ratio 36.9 (12.0-20.0); CO2, Blood 26 mmol/L (21-32); Calcium, Blood 8.4 mg/dL (8.5-10.1); Chloride, Blood 98 mmol/L (98-108); Glomerular Filtration Rate >60 (60-); Glucose, Blood 124 mg/dL (70-99); Phosphorus, Blood 4.1 mg/dL (2.5-4.9); Potassium, Blood 4.6 mmol/L (3.5-5.5); Sodium, Blood 132 mmol/L (136-145)
--- NOTE | 2020-06-27 05:54 | NUR ---
SUMMARY PATIENT RESTING IN BED MOST OF THE NIGHT REPOSITIONING SELF FROM LEFT SIDE TO PRONE. ON AIRVO T/O NIGHT 60L 91-95% FIO2. CONTINUES TO DESAT WITH ACTIVITY AT TIMES DOWN TO 80% RECOVERING SLOWLY, MOST OF THE NIGHT 93% USING URINAL TO VOID.
--- NOTE | 2020-06-27 09:42 | NUR ---
RECEIVED BEDSIDE REPORT FROM SHAUNA, PT PRONE, SLEEPING WELL. LUNGS DIMINISHED THROUGHOUT, WITHOUT ANY RALES,RHONCHI OR WHEEZE. PT ON AIRVO AT 60L WITH 90-94% O2. VITALS STABLE. PT AWOKE AROUND 0745 AND SWITCHED TO HIS LEFT SIDE WITH BIPAP. STATED COMFORTABLE AND CONTINUED SLEEPING. 0900-BREAKFAST AND AM MEDS BROUGHT IN FOR PT, SWITCHED TO AIRVO, HAS BEEN UNABLE TO MAINTAIN SATS >88% SINCE SWITCHING. PT WORKING ON HIS BREATHING, WATCHING THE MONITOR. TYRING TO FIGHT IT, COMPLAINS OF HEADACHE AND STIFF NECK. SAYS HE NORMALLY DOES STRETCHES, BUT UNABLE TO DO SO. RIGHT NOW, PT STATES HE FEELS FINE, JUST FRUSTRATED THAT HE CAN'T KEEP HIS SATS UP. LUNGS REMAIN, DIMINISHED WITH DRY COUGH.
--- NOTE | 2020-06-27 13:18 | NUR ---
UP TO RECLINER CHAIR AFTER TRYING TO USE THE BSC. UNABLE TO HAVE A BM. STATES IT HAS BEEN AWHILE, ASKED FOR A TUMS. CONTINUES ON BIPAP AT THIS TIME.
--- NOTE | 2020-06-27 16:21 | NUR ---
IN WITH PATIENT, AFTER ASSESSMENT HE TOLD HELENA THAT HE REALLY WASN'T IMPROVING AND HELENA IS STRUGGLING WITH THAT. HE IS DEPRESSED AND TEARFUL, FRUSTRATED. HE FEELS LIKE HE IS IMPROVING.
--- NOTE | 2020-06-27 17:24 | NUR ---
HELENA HAS BEEN ON BOTH CPAP AND AIRVO TODAY. HE WAS SLEEPING THIS MORNING, PRONE USING THE AIRVO AND TOLERATING IT WELL. HE AWOKE AND NEEDED TO BE PUT ON CPAP FOR A WHILE TO CATCH BACK UP. AT AROUND 0900, WE PUT HIM BACK ON AIRVO FOR BREAKFAST AND HE COULDN'T KEEP HIS SATS >85%. HE FOUGHT WITH IT UNTIL AFTER 1000 AND I ASKED HIM TO PUT ON HIS CPAP TO TAKE A BREAK. HE RESTED WELL FOR A COUPLE OF HOURS. HE TRIED TO USE THE BSC BUT WAS UNABLE TO HAVE A BM. HE THEN WENT TO THE CHAIR. HE IS STILL IN THE CHAIR. HE HAS BEEN ON AIRVO SINCE EARLY AFTERNOON, TOLERATING WELL. SATS >90%. HE WAS VISIBLY UPSET AFTER TALKING WITH , EVEN TEARFUL. HE IS SITTING UP IN THE RECLINER, KEEPING HIS SATS UP AND WATCHING TV. VSS.
--- NOTE | 2020-06-27 21:50 | NUR ---
PATIENT RESTING QUIETLY IN BED, REF DINNER, BUT AGREED TO CHICKEN BROTH. C/O NAUSEA AFTER DRINKING BROTH ZOFRAN IV GIVEN. AIRVO IN PLACE 60L FIO2 91% CONTINUES TO DESAT WITH SLIGHT ACTIVITY, BIOX DOWN TO 83% WITH VOIDING. SLOW TO RECOVER, BUT DOES WELL WITH CONCENTRATING AND STAYING CALM DURING THE RECOVERY PERIOD. CPAP AVAILABLE IF NEEDED. OCCASIONAL DRY COUGH WITH SMALL AMT OF SPUTUM.
--- NOTE | 2020-06-27 23:43 | NUR ---
PATIENT SLEEPING ON LEFT SIDE BIOX DOWN TO 85-87% ON AIRVO. CHANGED OVER TO CPAP 12 FIO2 100% PATIENT PRONING SELF IN BED. BIOX UP TO 70%
[2020-06-28 03:30] LABS: BASOPHILS PERCENT AUTO 1 % (0-2); EOSINOPHILS ABSOLUTE AUTO 0.17 K/mm3 (0.00-0.68); EOSINOPHILS PERCENT AUTO 1 % (0-6); Hematocrit 45.1 % (37.0-53.0); Hemoglobin 14.5 g/dL (13.5-17.5); IMMATURE GRAN ABSOLUTE AUTO 0.91 K/mm3 (0.00-0.10); IMMATURE GRAN PERCENT AUTO 6 % (0-1); LYMPHOCYTES ABSOLUTE AUTO 2.11 K/mm3 (0.84-5.20); LYMPHOCYTES PERCENT AUTO 13 % (21-46); MONOCYTES ABSOLUTE AUTO 0.22 K/mm3 (0.16-1.47); MONOCYTES PERCENT AUTO 1 % (4-13); Mean Corpuscular HGB 26.8 pg (26.0-34.0); Mean Corpuscular HGB Conc 32.2 g/dL (31.5-36.5); Mean Corpuscular Volume 83 fL (80-100); Mean Platelet Volume 10.4 fL (9.1-12.4); NEUTROPHILS PERCENT AUTO 78 % (41-73); Platelet Count 318 K/mm3 (150-400); RDW Coefficient Variation 13.1 % (11.7-14.2); Red Blood Cell Count 5.41 M/mm3 (4.30-5.90); White Blood Cell Count 16.21 K/mm3 (4.00-11.30)
[2020-06-28 03:48] LABS: BAND PERCENT MAN 3 % (0-8); BASOPHILS PERCENT MAN 0 % (0-2); EOSINOPHILS ABSOLUTE MAN 0.32 K/mm3 (0.00-0.68); EOSINOPHILS PERCENT MAN 2 % (0-6); LYMPHOCYTES ABSOLUTE MAN 0.48 K/mm3 (0.84-5.20); LYMPHOCYTES PERCENT MAN 3 % (21-46); METAMYELOCYTE ABSOLUTE MAN 0.16 K/mm3 (0.00-0.00); METAMYELOCYTE PERCENT MAN 1 % (0-0); MONOCYTES ABSOLUTE MAN 0.16 K/mm3 (0.16-1.47); MONOCYTES PERCENT MAN 1 % (4-13); NEUTROPHILS ABSOLUTE MAN 15.07 K/mm3 (1.96-9.15); SEG NEUTROPHILS PERCENT MAN 90 % (41-73); TOTAL CELLS COUNTED 100
[2020-06-28 03:49] LABS: Albumin, Blood 2.3 g/dL (3.4-5.0); Anion Gap 6 mmol/L (6-16); Blood Urea Nitrogen 19 mg/dL (8-24); Bun/Creatinine Ratio 30.2 (12.0-20.0); CO2, Blood 27 mmol/L (21-32); Calcium, Blood 8.4 mg/dL (8.5-10.1); Chloride, Blood 97 mmol/L (98-108); Creatinine, Blood 0.63 mg/dL (0.60-1.20); Glomerular Filtration Rate >60 (60-); Glucose, Blood 126 mg/dL (70-99); Phosphorus, Blood 4.8 mg/dL (2.5-4.9); Potassium, Blood 4.9 mmol/L (3.5-5.5); Sodium, Blood 130 mmol/L (136-145)
--- NOTE | 2020-06-28 06:38 | NUR ---
SUMMARY PATIENT SLEEPING MOST OF THE NIGHT WITH CPAP 12 FIO2 100% IN PLACE. PATIENT VERBALIZED HE SLEPT WELL T/O NIGHT. VERBALIZED THAT HE WILL KEEP CPAP ON A WHILE LONGER AND ATTEMPT TO GET SOME MORE SLEEP. PATIENT IN PRONE POSITION MOST OF THE NIGHT, REPOSITIONING SELF IN BED WITHOUT DIFFICULTY.
--- NOTE | 2020-06-28 10:05 | NUR ---
AM NOTE.... ASSUMED CARE OF PT APROX 0700, PT IS A&Ox4 AND COVID +. PT IS ON CPAP AT 12 AND 100% FIO2 MOST OF THE TIME AND AIRVO AT 60L AND 95% FIO2 WHEN HE EATS HIS MEALS. WHEN THE PT IS ON THE CPAP HIS O2 SATS ARE >91% HOWEVER WHEN HE SWITCHED TO AIRVO THIS AM FOR BREAKFAST HE WAS UNABLE TO GET HIS O2 SATS >86%. PT ATTEMPTED FOR APROX 30 MINS TO STAY ON THE AIRVO BUT WAS UNABLE TO KEEP HIS O2 SATS UP, PT WANTED TO EAT A LITTLE OF HIS BREAKFAST BEFORE GOING BACK ON THE CPAP. THE PT'S OTHER VS STABLE AT THIS TIME, HE IS IN NSR IN THE 80'S-90'S. RR 20'S-30'S AND BECOMES DYSPINC WITH ACTIVITY. NO EDEMA IS NOTED ON ASSESSMENT. L/S CLEAR AND DIM T/O. BT PRESENT AND HYPERACTIVE, ABD IS SOFT AND NONTENDER TO PALP. PT CURRENTLY DENIES ANY N/V WHICH HE HAD C/O OF ON NOC SHIFT. CALL LIGHT IN REACH WILL CONTINUE TO MONITOR.
--- NOTE | 2020-06-28 18:24 | NUR ---
SHIFT SUMMARY... PT HAS BEEN SWITCHED FROM CPAP SETTINGS TO BIPAP SETTINGS AT 12/10 AND 100% FIO2 PT'S O2 SATS WITH THIS SETTINGS ARE >90%. PT HAS NOT BEEN ABLE TO TOLERATE BEING OFF OF THE BIPAP AT ALL UNTIL APROX 1630 WHEN HE ASKED TO GET UP TO THE CHAIR AND HAVE A SNACK. THE PT DID WELL GETTING UP TO THE CHAIR A SBA AND ONCE HE CAUGHT HIS BREATH HE WAS ABLE TO TAKE THE BIPAP OFF AND USE THE AIRVO AT 60l AND 95%FIO2. PT WAS ABLE TO EAT 80% OF HIS DINNER AND KEEP HIS O2 SATS 86-90%. PT HAS BEEN UP IN THE CHAIR FOR APROX 2 HOURS AND NEEDED TO GET ON THE BSC TO HAVE A BM. PT WAS A SBA TO THE BSC AND TOLERATED THIS WELL HIS O2 DROPPING DOWN TO 83% BUT HE WAS ABLE TO RECOVER FAIRLY QUICKLY. WILL CONTINUE TO MONIOR UNTIL REPORT IS GIVEN TO ONCOMING RN.
--- NOTE | 2020-06-28 19:37 | NUR ---
PATIENT SITTING UP IN CHAIR WATCHING TV. AIRVO IN PLACE SET TO 60L 91% FIO2. CONTINUES TO BE SOB WITH SLIGHT ACTIVITY. MAINTAINING BIOX 91% AT THIS TIME.
--- NOTE | 2020-06-28 22:06 | NUR ---
PATIENT TRANSFER TO CHAIR WITH MIN ASSIST WITH AIRVO IN PLACE. WHEN IN BED BIOX CONTINUES TO 86-87%, PLACED ON BIPAP 12/10 FIO2 100% AND ASSISTED PATIENT TO PRONE POSITION. PATIENT MAINTAINING BIOX 91-93%
[2020-06-29 05:00] LABS: BASOPHILS ABSOLUTE AUTO 0.11 K/mm3 (0.00-0.23); BASOPHILS PERCENT AUTO 1 % (0-2); EOSINOPHILS ABSOLUTE AUTO 0.23 K/mm3 (0.00-0.68); EOSINOPHILS PERCENT AUTO 1 % (0-6); Hematocrit 46.5 % (37.0-53.0); Hemoglobin 15.1 g/dL (13.5-17.5); IMMATURE GRAN PERCENT AUTO 6 % (0-1); LYMPHOCYTES ABSOLUTE AUTO 1.96 K/mm3 (0.84-5.20); LYMPHOCYTES PERCENT AUTO 10 % (21-46); MONOCYTES ABSOLUTE AUTO 0.21 K/mm3 (0.16-1.47); MONOCYTES PERCENT AUTO 1 % (4-13); Mean Corpuscular HGB 27.2 pg (26.0-34.0); Mean Corpuscular HGB Conc 32.5 g/dL (31.5-36.5); Mean Corpuscular Volume 84 fL (80-100); Mean Platelet Volume 10.4 fL (9.1-12.4); NEUTROPHILS ABSOLUTE AUTO 15.32 K/mm3 (1.96-9.15); NEUTROPHILS PERCENT AUTO 81 % (41-73); Platelet Count 329 K/mm3 (150-400); RDW Standard Deviation 39.9 fL (35.1-46.3); Red Blood Cell Count 5.56 M/mm3 (4.30-5.90); White Blood Cell Count 18.93 K/mm3 (4.00-11.30)
[2020-06-29 05:16] LABS: Albumin, Blood 2.3 g/dL (3.4-5.0); Anion Gap 6 mmol/L (6-16); Blood Urea Nitrogen 20 mg/dL (8-24); Bun/Creatinine Ratio 30.6 (12.0-20.0); CO2, Blood 28 mmol/L (21-32); Calcium, Blood 8.8 mg/dL (8.5-10.1); Chloride, Blood 96 mmol/L (98-108); Creatinine, Blood 0.65 mg/dL (0.60-1.20); Glomerular Filtration Rate >60 (60-); Glucose, Blood 129 mg/dL (70-99); Phosphorus, Blood 4.2 mg/dL (2.5-4.9); Potassium, Blood 4.9 mmol/L (3.5-5.5); Sodium, Blood 130 mmol/L (136-145)
[2020-06-29 05:33] LABS: BAND PERCENT MAN 3 % (0-8); BASOPHILS PERCENT MAN 0 % (0-2); EOSINOPHILS ABSOLUTE MAN 0.18 K/mm3 (0.00-0.68); EOSINOPHILS PERCENT MAN 1 % (0-6); LYMPHOCYTES ABSOLUTE MAN 1.13 K/mm3 (0.84-5.20); LYMPHOCYTES PERCENT MAN 6 % (21-46); METAMYELOCYTE ABSOLUTE MAN 0.37 K/mm3 (0.00-0.00); METAMYELOCYTE PERCENT MAN 2 % (0-0); MONOCYTES ABSOLUTE MAN 0.37 K/mm3 (0.16-1.47); MONOCYTES PERCENT MAN 2 % (4-13); MYELOCYTE ABSOLUTE MAN 0.18 K/mm3 (0.00-0.00); MYELOCYTE PERCENT MAN 1 % (0-0); NEUTROPHILS ABSOLUTE MAN 16.65 K/mm3 (1.96-9.15); SEG NEUTROPHILS PERCENT MAN 85 % (41-73); TOTAL CELLS COUNTED 100
--- NOTE | 2020-06-29 06:08 | NUR ---
SUMMARY PATIENT SLEEPING MOST OF THE NIGHT WITH BIPAP 12/10 FIO2 100% IN PLACE AND IN THE PRONE POSITION. PATIENT CONTINUES TO DESAT EASILY WITH BIOX DOWN TO LOW 80'S. PATIENT RESP 30-40 T/O NIGHT EVEN WHEN SLEEPING.
--- NOTE | 2020-06-29 07:30 | NUR ---
Received report from Debbie JIM. Patient is supine on left side with BIPAP 12/10 and sats 83-90%. He was c/o mask problems and fixed button. He stated nauseated and will medicate per MAR. VSS, See EMR other sats variation. patient is independent in bed and positions self for comfort and proniong. He uses urinal appropriaety and had has grzegorz colored output.
--- NOTE | 2020-06-29 09:30 | NUR ---
Patient asked to be up in chair and ambulated with minimal assist with lines and tubes. Sats in the mid to high 80%'s, RT changed BIPAP settings to 14/12. VSS, See EMR. He denies wanting any breakfast and Dr Gates not sure wanting him to eat if thought of intubation.
--- NOTE | 2020-06-29 11:30 | NUR ---
Patient asked to go back to bed. He states having harder time catching breath and RT tried BIPAP change to 16/14 and he did not tolerate and placed back to 12. Talked with Dr Do and then talked with patient about intubation and patient agreed and let him talk with sister to talk about it more. Will assemble staff and supplies. See VS.
--- NOTE | 2020-06-29 13:30 | NUR ---
Patient intubated with 8.0 ET and is 28 cm at lips with vent settings of AC 16, TV 400, FiO2 100% and PEEP 10. We placed OG and 16Fr temp flynn. Proned patient. Placed PICC line in ANIVAL and started Propofol at 30 mcg/kg/min andf shortly increased to 50 mcg/kg/min. Nimbex started at 2 mcg/kg /min and increased to 3.5 to keep below BIZ < 60. @nd bolus of LR has infused and started third.
[2020-06-29 14:01] LABS: PCO2 Arterial 69.6 mmHg (35-45); PO2 Arterial 62.8 mmHg (80-100)
--- NOTE | 2020-06-29 16:00 | NUR ---
Patient settings are AC 24, TV 450, FiO2 100% and PEEP 15 with sast 83-90%. He remains proned. Propofol at 50 mcg/kg/min. Nimbex at 3 mcg/kg/min, Levophed at 6 mcg/min, D5-Bicarb at 150 ml/hr. TF was started VHP at 25ml/hr with 30 ml water flushes Q4. Luo patent and draining to gravity.
[2020-06-29 17:49] LABS: Source, Urine Catheter
[2020-06-29 18:01] LABS: Appearance, Urine Clear (Clear); Blood, Urine Neg (Neg); Color, Urine Amber (P-Yellow); Glucose Qualitative, Urine Neg (Neg); Ketones, Urine 1+ (Neg); Leukocyte Esterase, Urine 1+ (Neg); Nitrite, Urine Neg (Neg); Protein, Urine 2+ (Neg); Urobilinogen, Urine 2+ (Normal)
--- NOTE | 2020-06-29 18:07 | NUR ---
Patient remains proned, sedated and paralytics. Vent setting Ac 24, TV 450, FiO2 95% and PEEP 15 with with sats 93%. PICC line in ANIVAL infusing Propofol 50 mcg/kg/min, Nimbex 3 mcg/kg/min, Levophed 10 mcg/min, D5- Bicarb 150 ml/hr. Luo output grzegorz colored 500 ml. TF 50 with no flushes as of yet.
[2020-06-29 19:28] LABS: Bilirubin, Urine 1+ (Neg)
[2020-06-29 19:30] LABS: Bacteria Mod /hpf; Red Blood Cells, Urine 0-2 /hpf (0-2); Squamous Epithelial Cells Few /hpf (Few)
[2020-06-29 19:31] LABS: Mucus Light (0-Heavy)
--- NOTE | 2020-06-29 19:48 | NUR ---
ASSESSMENT/ASSUMED CARE PT INTUBATED AND SEDATED. PT PRONED WITH LEFT ARM DOWN AND RIGHT ARM UP. HEAD TO LEFT SIDE. NEW A LINE PLACED TO LEFT WRIST BY DR DINERO, A LINE ZEROED. PT REPOSITIONED TO LEFT SIDE WHILE PRONED LEFT ARM UP, RIGHT ARM DOWN AND HEAD TURNED TO RIGHT. LUNGS CLEAR BUT DECREASED. VENT SETTINGS AC 24 TV 400 PEEP 15 FIO2 95%. ORAL CARE DONE AND MERCEDES-LUBE TO EYES. TRAIN OF 4/4, BIS 40. HEART RATE 110'S, BP PER A LINE STABLE ON LEVOPHED AT 10 MCQ/MIN. OG WITH HIGH RESIDUAL 290 ML, REPORTED TO DR DINERO. RESIDUAL WASTED AND TUBE FEED STOPPED. JENNINGS CATH PATENT DRAINING CLOUDY YELLOW URINE. ECHO TEAM ETA 2200.
[2020-06-29 20:00] LABS: PCO2 Arterial 60.2 mmHg (35-45); PO2 Arterial 75.7 mmHg (80-100); pH Blood Arterial 7.26 (7.35-7.45)
--- NOTE | 2020-06-29 20:05 | NUR ---
ABG DR DINERO REVIEWED ABD, FIO2 DECREASED TO 85%
[2020-06-29 21:21] LABS: Influenza A, PCR Negative (NEGATIVE); Influenza B, PCR Negative (NEGATIVE); SARS-Cov-2 (COVID-19) PCR, MMC Positive (NEGATIVE)
[2020-06-29 21:22] LABS: Resp Syncytial Virus, PCR Negative (NEGATIVE)
[2020-06-29 22:47] LABS: PCO2 Arterial 63.3 mmHg (35-45); PO2 Arterial 52.3 mmHg (80-100); pH Blood Arterial 7.27 (7.35-7.45)
--- NOTE | 2020-06-29 23:01 | NUR ---
ECMO TEAM ECMO TEAM HERE, PT PLACED ON TRANSPORT VENT. DR MCDANIEL AT BEDSIDE.
--- NOTE | 2020-06-29 23:14 | NUR ---
PEEP SPO2 76% PEEP INCREASED PER DR MCDANIEL TO 18
--- NOTE | 2020-06-30 00:06 | NUR ---
TRANSFER PT TRANSFERED TO TRANSPORT MONITOR. FLIGHT CREW AT BEDSIDE. TRANSFERING PT TO [facility].
--- NOTE | 2020-06-30 00:07 | NUR ---
REPORT CALLED TO [facility] CALL REPORT TO HELENA JIM AT [facility]. FLIGHT TEAM OUT AT 2350. PT STABLE. UP DATE CALLED TO SISTER LUCAS. PT CELL PHONE AND ASSOCIATE MERCHANDISER SENT WITH TRANSPORT TEAM.
--- NOTE | 2020-06-30 12:59 | NUR ---
UPDATE PROVIDED TO DR. GARZA AT [facility] REGARDING DEXAMETHASONE AND REMDESIVIR PER PHYSICIAN'S REQUEST.
== END 2020-06-29 23:50 | disposition short-term general hospital (02) | DRG 208 ==
LOC: ER 08:08 → ICUE 10:50 → ICUW 10:50 → ICUE 13:00
PROVIDERS: Emergency Medicine; Family Medicine; Internal Medicine; Internal Medicine Critical Care Medicine; Internal Medicine Pulmonary Disease; Nurse Practitioner Acute Care; ADMIT Internal Medicine
PROC: XW043E5 Introduction of Remdesivir Anti-infective into Central Vein, Percutaneous Approach, New Technology Group 5 (ICD-10-PCS; 2020-06-20)
PROC: 3E02340 Introduction of Influenza Vaccine into Muscle, Percutaneous Approach (ICD-10-PCS; 2020-06-20)
PROC: XW043E5 Introduction of Remdesivir Anti-infective into Central Vein, Percutaneous Approach, New Technology Group 5 (ICD-10-PCS; 2020-06-21)
PROC: 5A09357 Assistance with Respiratory Ventilation, Less than 24 Consecutive Hours, Continuous Positive Airway Pressure (ICD-10-PCS; principal; 2020-06-22)
PROC: XW043E5 Introduction of Remdesivir Anti-infective into Central Vein, Percutaneous Approach, New Technology Group 5 (ICD-10-PCS; 2020-06-22)
PROC: XW043E5 Introduction of Remdesivir Anti-infective into Central Vein, Percutaneous Approach, New Technology Group 5 (ICD-10-PCS; 2020-06-23)
PROC: XW043E5 Introduction of Remdesivir Anti-infective into Central Vein, Percutaneous Approach, New Technology Group 5 (ICD-10-PCS; 2020-06-24)
PROC: 02HV33Z Insertion of Infusion Device into Superior Vena Cava, Percutaneous Approach (ICD-10-PCS; 2020-06-29)
PROC: 5A1935Z Respiratory Ventilation, Less than 24 Consecutive Hours (ICD-10-PCS; 2020-06-29)
PROC: 0BH18EZ Insertion of Endotracheal Airway into Trachea, Via Natural or Artificial Opening Endoscopic (ICD-10-PCS; 2020-06-29)
PROC: 03HC33Z Insertion of Infusion Device into Left Radial Artery, Percutaneous Approach (ICD-10-PCS; 2020-06-29)
DX: U07.1 COVID-19 (principal); J96.01 Acute respiratory failure with hypoxia; J12.82 Pneumonia due to coronavirus disease 2019; Z68.41 Body mass index [BMI] 40.0-44.9, adult; E87.1 Hypo-osmolality and hyponatremia; E66.01 Morbid (severe) obesity due to excess calories; E78.5 Hyperlipidemia, unspecified; K21.9 Gastro-esophageal reflux disease without esophagitis; I95.9 Hypotension, unspecified; Z23 Encounter for immunization
CPT/HCPCS: 0241U; 31500; 31720; 36415; 36569; 36600; 36620; 51702; 71045; 80048; 80053; 80069; 81001; 82728; 82803; 82947; 83735; 83880; 84100; 84145; 84484; 85025; 85379; 85610; 85730; 86140; 86850; 86900; 86901; 87070; 87086; 87205; 93005; 93010; 94002; 94640; 94660; 96365; 96375; 99285-25; A9270; C1751; C9113; G0008; J0330; J1100; J1650; J2060; J2405; J2704; J7030; J7050; J7060; J7070; J7120; Q2038

== ENCOUNTER 2023-12-03 09:59 | Day surgery (SDC) | payer OTHER ==
[~2023-12-03] VITALS: Ht 182.9 cm; Wt 127.2 kg
[~2023-12-03 09:59] MED LIST changes: +Lactated Ringer's 1,000 ML IV ONE
[2023-12-03] MEDS ORDERED: ZYRTEC10 M2 (10:32)
[2023-12-03] MEDS ORDERED: METF500 (10:33)
[2023-12-03] MEDS ORDERED: FERREX 28 TABL1 EACH (10:34)
[2023-12-03] MEDS ORDERED: K-Dur20 MEQ (10:35)
[2023-12-03] MEDS ORDERED: PRAV20 (10:36)
[2023-12-03] MEDS ORDERED: ALBU90OI (10:36)
[2023-12-03] MEDS ORDERED: ZYRTEC10 M1 (10:37)
[2023-12-03] MEDS ORDERED: propofoL 50 ML IV ONE ×2 (10:39→12:30)
[2023-12-03] MEDS ORDERED: TRELEGY ELLIPT1 EACH (11:05)
[2023-12-03] MEDS ORDERED: Lactated Ringer's 1,000 ML IV ONE (11:18)
--- NOTE | 2023-12-03 11:38 | NUR ---
12/03/23 1137 Gabriel Parker PT ON 2-4L O2 AT BASELINE. PT PLACED ON 3L O2 VIA NC IN PRE-OP, O2 SATURATIONS MAINTAINED 92-93%, PT STATED IS BASELINE O2 SATURATIONS.
--- NOTE | 2023-12-03 12:40 | NUR ---
12/03/23 1240 Gabriel Parker MD, "TATTOO PLACED DISTAL A FEW CM FROM 'LARGE DESCENDING POLYP'".
[2023-12-03] MEDS ORDERED: Lidocaine HCl 1% 30 ML SDV ONE (12:44)
[2023-12-03 13:28] VITALS: BP 126/82
== END 2023-12-03 13:14 | disposition home or self-care (01) ==
LOC: ORSCSDS 09:59
PROVIDERS: Internal Medicine Gastroenterology
PROC: 0DBL8ZX Excision of Transverse Colon, Via Natural or Artificial Opening Endoscopic, Diagnostic (ICD-10-PCS; principal; 2023-12-03 11:15)
PROC: 3E0H8KZ Introduction of Other Diagnostic Substance into Lower GI, Via Natural or Artificial Opening Endoscopic (ICD-10-PCS; principal; 2023-12-03 11:15)
PROC: 0DBH8ZX Excision of Cecum, Via Natural or Artificial Opening Endoscopic, Diagnostic (ICD-10-PCS; principal; 2023-12-03 11:15)
PROC: 0DBM8ZX Excision of Descending Colon, Via Natural or Artificial Opening Endoscopic, Diagnostic (ICD-10-PCS; principal; 2023-12-03 11:15)
PROC: 0DB78ZX Excision of Stomach, Pylorus, Via Natural or Artificial Opening Endoscopic, Diagnostic (ICD-10-PCS; principal; 2023-12-03 11:15)
PROC: 0DBK8ZX Excision of Ascending Colon, Via Natural or Artificial Opening Endoscopic, Diagnostic (ICD-10-PCS; principal; 2023-12-03 11:15)
DX: D50.9 Iron deficiency anemia, unspecified (principal); D12.0 Benign neoplasm of cecum; D12.2 Benign neoplasm of ascending colon; D12.3 Benign neoplasm of transverse colon; D12.4 Benign neoplasm of descending colon; K29.70 Gastritis, unspecified, without bleeding; Z86.16 Personal history of COVID-19; Z99.81 Dependence on supplemental oxygen; E78.5 Hyperlipidemia, unspecified; Z79.899 Other long term (current) drug therapy; E66.9 Obesity, unspecified; Z68.38 Body mass index [BMI] 38.0-38.9, adult; E11.9 Type 2 diabetes mellitus without complications; Z79.84 Long term (current) use of oral hypoglycemic drugs; Z87.09 Personal history of other diseases of the respiratory system
CPT/HCPCS: 82947; 88305; 88342; J2704; J7120

== ENCOUNTER 2024-03-02 13:00 | Day surgery (SDC) | payer OTHER ==
[~2024-03-02] VITALS: Ht 180.3 cm; Wt 125.5 kg
[~2024-03-02 13:00] MED LIST changes: +ALBU90OI; +FERREX 28 TABL1 EACH; +K-Dur20 MEQ; +Lidocaine 2% 5 ML SDV ONE; +Lidocaine HCl/Pf 1% 5 ML VIAL ONE; +METF500; +PRAV20; +TRELEGY ELLIPT1 EACH; +ZYRTEC10 M1; +ZYRTEC10 M2
[2024-03-02] MEDS ORDERED: propofoL 50 ML IV ONE ×2 (14:22→15:14)
[2024-03-02] MEDS ORDERED: Lactated Ringer's 1,000 ML IV ONE (14:22)
--- NOTE | 2024-03-02 15:29 | NUR ---
03/02/24 1529 VISHNU PORTILLO SOFT COAG 80
[2024-03-02 15:40] VITALS: BP 123/80
== END 2024-03-02 15:47 | disposition home or self-care (01) ==
LOC: ORSCSDS 13:00
PROVIDERS: Internal Medicine Gastroenterology
PROC: 0DBL8ZX Excision of Transverse Colon, Via Natural or Artificial Opening Endoscopic, Diagnostic (ICD-10-PCS; principal; 2024-03-02 15:00)
PROC: 0DBM8ZX Excision of Descending Colon, Via Natural or Artificial Opening Endoscopic, Diagnostic (ICD-10-PCS; principal; 2024-03-02 15:00)
PROC: 0DBK8ZX Excision of Ascending Colon, Via Natural or Artificial Opening Endoscopic, Diagnostic (ICD-10-PCS; principal; 2024-03-02 15:00)
DX: D12.4 Benign neoplasm of descending colon (principal); Z86.010 Personal history of colon polyps; D12.2 Benign neoplasm of ascending colon; D12.3 Benign neoplasm of transverse colon; J80 Acute respiratory distress syndrome; U09.9 Post COVID-19 condition, unspecified; Z99.81 Dependence on supplemental oxygen; E11.9 Type 2 diabetes mellitus without complications; K21.9 Gastro-esophageal reflux disease without esophagitis; Z79.84 Long term (current) use of oral hypoglycemic drugs; Z79.899 Other long term (current) drug therapy; E66.9 Obesity, unspecified; Z68.38 Body mass index [BMI] 38.0-38.9, adult
CPT/HCPCS: 82947; 88305; J2001; J2704; J7120